=== PATIENT | male | born 1970 | race Two or more races ===

== ENCOUNTER 2020-09-09 13:53 | Inpatient (IN) | payer MEDICAID ==
[~2020-09-09] VITALS: Ht 170.2 cm; Wt 69.6 kg
[2020-09-09 14:10] VITALS: BP 133/80
--- NOTE | 2020-09-09 14:10 | NUR ---
MS FLIGHT TEST SUPERVISOR NOTE ADMITTED PATIENT, DIRECT ADMIT FROM [place]. REPORT GIVEN BY ANILA HUMMEL. PATIENT ALERT AND ORIENTED X 4. DENIED PAIN AT THIS TIME. NO ACUTE DISTRESS OR SHORTNESS OF BREATH NOTED. ORIENTED PATIENT TO THE ROOM, SHOWED HOW TO USE CALL LIGHT AND PLACED WITHIN REACH. SAFETY MEASURE IN PLACE, BED LOCKED IN LOWEST POSITION. NEEDS ATTENDED. IV ACCESS IN RIGHT ANTECUBITAL #20 G CLEAN, DRY, AND INTACT. PATIENT HAS $1075 HERNAN[place], REFUSED TO PLACE MONEY IN SAFE FOR SAFEKEEPING, EXPLAINED RISKS AND BENEFITS AND THAT HOSPITAL IS NOT RESPONSIBLE FOR LOSS, PATIENT VERBALIZED UNDERSTANDING AND STATED DAUGHTER WILL PICK IT UP. WILL CONTINUE TO MONITOR
[2020-09-09] MEDS ORDERED: GLIP10TA3 PO (14:59)
[2020-09-09 16:00] VITALS: BP 133/80
[2020-09-09] MEDS ORDERED: MAG HYDROX/AL HYDROX/SIMETH 30 ML UDC PO PRN (16:00)
[2020-09-09] MEDS ORDERED: ZOLPIDEM TARTRATE 5 MG TABLET PO PRN (16:00)
[2020-09-09] MEDS ORDERED: ONDANSETRON HCL/PF 4 MG/2 ML VIAL IVP PRN (16:00)
[2020-09-09] MEDS ORDERED: HYDROCODONE/APAP 5/325MG TABLET PO PRN (16:00)
[2020-09-09] MEDS ORDERED: MAGNESIUM HYDROXIDE 30 ML UDC PO PRN (16:00)
[2020-09-09] MEDS ORDERED: DEXTROSE 50%-WATER 50 ML DISP.SYRIN IV PRN (16:00)
[2020-09-09] MEDS ORDERED: Z GUARD REMEDY 2 OZ OINT TP PRN (16:00)
[2020-09-09] MEDS ORDERED: MORPHINE SULFATE INJ 2 MG/ML DISP.SYRIN IV PRN (16:00)
[2020-09-09] MEDS: PANTOPRAZOLE 40 MG VIAL IV SCH (16:28)
[2020-09-09] MEDS: IV NS 0.9% 1,000 ML IV PRN (16:28)
--- NOTE | 2020-09-09 16:30 | NUR ---
MS RN NOTE PATIENT SEEN AND EVALUATED BY DR. MARIUM MCDOWELL. MENTIONED VTE SCORE >5, SAID HE WILL PLACE ORDERS.
--- NOTE | 2020-09-09 17:00 | NUR ---
MS RN NOTE PATIENT SEEN AND EVALUATED BY DR. HOFFMAN, PER MD THEY WILL DECIDE TOMORROW REGARDING PLAN FOR SURGERY AND WILL LET US KNOW
[2020-09-09] MEDS: BLOOD SUGAR DIAGNOSTIC 1 EACH STRIP IN SCH ×2 (17:30→21:14)
--- NOTE | 2020-09-09 17:45 | NUR ---
MS RN NOTE PATIENT SEEN AND EVALUATED BY DR. MCCAULEY, PER MD PATIENT CLEARED FOR SURGERY
[2020-09-09] MEDS: INSULIN REGULAR, HUMAN 100 UNIT/ML 3 ML VIAL SQ PRN (18:54)
--- NOTE | 2020-09-09 19:00 | NUR ---
MS CLOSING NOTE PATIENT ALERT AND ORIENTED X 4. DENIED PAIN AT THIS TIME. NO ACUTE DISTRESS OR SHORTNESS OF BREATH NOTED. SAFETY MEASURE IN PLACE, BED LOCKED IN LOWEST POSITION, CALL LIGHT PLACED WITHIN REACH. . NEEDS ATTENDED TO AND ANTICIPATED. IV ACCESS IN RIGHT ANTECUBITAL #20 G CLEAN, DRY, AND INTACT, RUNNING NORMAL SALINE AT 75 MLS/HR. WILL ENDORSE TO RESIDENTIAL SALES CONSULTANT NURSE FOR CONTINUITY OF CARE
[2020-09-09 20:00] VITALS: BP 135/68
--- NOTE | 2020-09-09 20:19 | NUR ---
MS/TELE/RN DURING INITIAL SHIFT ROUNDING, FOUND PATIENT LYING IN BED AWAKE, ALERT, ORIENTED, COMFORTABLE, NO C/O PAIN, NO DISTRESS NOTED, PLAN OF CARE DISCUSSED RE: NPO AFTER MIDNIGHT FOR POSSIBLE PROCEDURE/SURGERY IN THE MORNING, VERBALIZED UNDERSTANDING AND AGREEMENT TO THE PLAN, WILL MONITOR.
[2020-09-09] MEDS: ENOXAPARIN SODIUM 40 MG/0.4 ML DISP.SYRIN SQ SCH (21:00)
--- NOTE | 2020-09-09 21:00 | NUR ---
MS/TELE/RN BLOOD SUGAR 268, DID NOT GIVE INSULIN PATIENT WILL BE NPO POST MIDNIGHT. WILL MONITOR.
--- NOTE | 2020-09-09 21:35 | NUR ---
MS/TELE/RN PER DR. OBREGON, HOLD LOVENOX DOSE TONIGHT FOR POSSIBLE SURGERY IN A.M.
[2020-09-10 00:09] LABS: BASOPHILS % (AUTO) 0.2 % (0.0-2.0); EOSINOPHILS % (AUTO) 0.6 % (0.0-6.0); HEMATOCRIT 33 % (39-51); HEMOGLOBIN 11.1 g/dL (13.5-17.5); LYMPHOCYTES # (AUTO) 1.3 /CMM (0.8-4.8); LYMPHOCYTES % (AUTO) 14.1 % (20.0-44.0); MEAN CORPUSCULAR HGB CONC 34 g/dl (31.0-36.0); MEAN CORPUSCULAR VOLUME 87 fL (80-96); MONOCYTES # (AUTO) 0.8 /CMM (0.1-1.30); MONOCYTES % (AUTO) 8.4 % (2.0-12.0); NEUTROPHILS # (AUTO) 6.9 /CMM (1.8-8.9); NEUTROPHILS % (AUTO) 76.7 % (43.0-81.0); PLATELET COUNT (AUTO) 220 /CMM (150-450); RED BLOOD CELL COUNT(AUTO) 3.73 MIL/uL (4.5-6.0)
[2020-09-10 00:20] LABS: CALCIUM, SERUM 8.1 mg/dL (8.5-10.1); CREATININE 1.6 mg/dL (0.6-1.3); POTASSIUM 4.2 mmol/L (3.5-5.1)
[2020-09-10] MEDS: IV NS 0.9% 1,000 ML IV PRN (05:30)
--- NOTE | 2020-09-10 06:01 | NUR ---
MS/TELE/RN PATIENT IS AWAKE, COMFORTABLE, NO C/O PAIN, NO DISTRESS NOTED, NPO POST MIDNIGHT STATUS, GOOD SLEEP NOTED DURING THE SHIFT, ALL NEEDS ATTENDED AT THIS TIME, WILL CONTINUE TO MONITOR.
--- NOTE | 2020-09-10 06:32 | NUR ---
MS/TELE/RN BLOOD SUGAR 234, DID NOT GIVE INSULIN PATIENT IS NPO FOR SURGERY TODAY.
[2020-09-10 06:39] LABS: BASOPHILS % (AUTO) 0.2 % (0.0-2.0); EOSINOPHILS % (AUTO) 0.2 % (0.0-6.0); HEMATOCRIT 34 % (39-51); HEMOGLOBIN 11.3 g/dL (13.5-17.5); LYMPHOCYTES # (AUTO) 1.1 /CMM (0.8-4.8); LYMPHOCYTES % (AUTO) 11.1 % (20.0-44.0); MEAN CORPUSCULAR HGB CONC 34 g/dl (31.0-36.0); MEAN CORPUSCULAR VOLUME 88 fL (80-96); MONOCYTES # (AUTO) 0.7 /CMM (0.1-1.30); MONOCYTES % (AUTO) 7.1 % (2.0-12.0); NEUTROPHILS # (AUTO) 8.2 /CMM (1.8-8.9); NEUTROPHILS % (AUTO) 81.4 % (43.0-81.0); PLATELET COUNT (AUTO) 215 /CMM (150-450); RED BLOOD CELL COUNT(AUTO) 3.83 MIL/uL (4.5-6.0); WHITE BLOOD COUNT (AUTO) 10.1 K/uL (4.3-11.0)
[2020-09-10 07:00] LABS: CALCIUM, SERUM 8.4 mg/dL (8.5-10.1); CREATININE 1.5 mg/dL (0.6-1.3); MAGNESIUM 1.7 mg/dL (1.8-2.4); PHOSPHORUS 2.2 mg/dL (2.5-4.9); POTASSIUM 3.9 mmol/L (3.5-5.1)
--- NOTE | 2020-09-10 07:38 | NUR ---
MS/RN OPENING NOTES RECEIVED PATIENT IS ON BED AWAKE ALERT AND ORIENTED X4. PATIENT IS ON ROOM AIR SATURATION 92%. PATIENT IN NO APPARENT RESPIRATORY DISTRESS NOTED. NO COMPLAINED OF PAIN NOTED AT THIS TIME. WILL CONTINUE TO MONITOR.
[2020-09-10] MEDS: BLOOD SUGAR DIAGNOSTIC 1 EACH STRIP IN SCH ×4 (07:52→22:22)
[2020-09-10 08:00] VITALS: BP 132/85
[2020-09-10] MEDS ORDERED: VANCOMYCIN 1 GM VIAL ONE (08:40)
[2020-09-10] MEDS ORDERED: BUPIVACAINE 0.25% 75 MG/30 ML VIAL ONE (08:40)
[2020-09-10] MEDS ORDERED: ANESTHESIA TRAY IN PYXIS 1 EA TRAY MC ONE (08:40)
[2020-09-10] MEDS ORDERED: BUPIVACAINE 0.5 % PF 150 MG/30 ML VIAL ONE (08:40)
--- NOTE | 2020-09-10 08:46 | NUR ---
MS/RN NOTES PATIENT IS ALERT AND ORIENTED X4. PATIENT IN NO APPARENT RESPIRATORY DISTRESS NOTED. PATIENT PICK BY OR NURSE FOR SURGERY.
[2020-09-10] MEDS ORDERED: MIDAZOLAM HCL 2 MG/2ML VIAL ONE (08:51)
[2020-09-10] MEDS ORDERED: FENTANYL PF 100MCG/2ML AMPUL ONE (08:51)
[2020-09-10] MEDS ORDERED: SUCCINYLCHOLINE CHLORIDE 20 MG/ML VIAL ONE (08:52)
[2020-09-10] MEDS ORDERED: IV NS 0.9% 1,000 ML IV PRN (08:56)
[2020-09-10] MEDS: PANTOPRAZOLE 40 MG VIAL IV SCH (09:00)
[2020-09-10] MEDS: NEUTRA PHOS 1 POWD.PACKET PO SCH ×2 (09:00→16:51)
[2020-09-10 10:02] LABS: THYROID STIMULATING HORMONE 1.405 uIU/mL (0.358-3.74)
--- NOTE | 2020-09-10 11:29 | NUR ---
MS/RN NOTES PATIENT CAME BACK FROM SURGERY.PATIENT IN ROOM AIR SATURATION 93%. PATIENT IN NO APPARENT RESPIRATORY DISTRESS NOTED. NO COMPLAINED OF PAIN NOTED AT THIS TIME. RECEIVED REPORT FROM PAT SECRETARY OF POLICE REGULAR DIET, OUT OF BED IN AM AND WEIGHT BEARING ON RIGHT LEG TOLERATED AND DISLOCATION PRECAUTION. NOTED AND CARRIED OUT. BP 115/71 P 93 TEMP 98.5. WILL CONTINUE TO MONITOR.
[2020-09-10] MEDS ORDERED: HYDROCODONE/APAP 10/325MG TABLET PO PRN (12:00)
[2020-09-10] MEDS ORDERED: MORPHINE SULFATE INJ 2 MG/ML DISP.SYRIN IV PRN (12:00)
[2020-09-10] MEDS: IV D5/0.45 NACL W/20 MEQ KCL 1L IV SCH ×2 (12:09→13:04)
[2020-09-10] MEDS: INSULIN REGULAR, HUMAN 100 UNIT/ML 3 ML VIAL SQ PRN ×3 (12:23→21:56)
[2020-09-10] MEDS ORDERED: Magnesium 1GM/D5W 100ML PREMIX 200 ML IV ONE (12:26)
[2020-09-10] MEDS: Magnesium 1GM/D5W 100ML PREMIX 100 ML IV SCH ×2 (12:26→14:04)
[2020-09-10 16:00] VITALS: BP 107/60
[2020-09-10] MEDS: ANCEF 1 GM/50 ML D5W IV SCH (16:50)
[2020-09-10] MEDS: glipiZIDE 10 MG TABLET PO SCH (16:51)
--- NOTE | 2020-09-10 18:45 | NUR ---
MS/RN CLOSING NOTES PATIENT IS ON BED ALERT AND ORIENTED X4. PATIENT IN ROOM AIR SATURATION 92%. PATIENT IN NO APPARENT RESPIRATORY DISTRESS NOTED. NO COMPLAINED OF PAIN AT THIS TIME. IV ACCESS AT RIGHT WRIST # 22 G PATENT AND INTACT. SEEN AND EXAMINED BY MD WITH ORDERS MADE AND CARRIED OUT. ALL DUE MEDICATIONS WAS GIVEN. SAFETY PRECAUTIONS WAS IN PLACED. BED IN LOWEST POSITION AND LOCKED. SIDERAILS UP X2. CALL LIGHT WITHIN REACH. WILL ENDORSED TO EXPERIMENTAL WORKER FOR DELMAR.
--- NOTE | 2020-09-10 19:40 | NUR ---
MS/TELE/RN RECEIVED PATIENT LYING IN BED APPEAR SLEEPING, APPEAR COMFORTABLE, NO SIGNS OF DISTRESS NOTED, CALL LIGHT IN REACH, FALL PRECAUTION PER PROTOCOL, WILL MONITOR.
[2020-09-10 20:00] VITALS: BP 102/63
[2020-09-10] MEDS: ACETAMINOPHEN 325 MG TABLET PO PRN (21:44)
[2020-09-10] MEDS: ENOXAPARIN SODIUM 40 MG/0.4 ML DISP.SYRIN SQ SCH (21:47)
[2020-09-11] MEDS: ANCEF 1 GM/50 ML D5W IV SCH ×2 (00:05→09:05)
--- NOTE | 2020-09-11 01:01 | NUR ---
MS/TELE/RN AT 2143, DIRECTOR SUPPLIER QUALITY REPORTED A TEMP OF 102.8, PATIENT IS S/P ORIF, TYLENOL WAS GIVEN, COOLING MEASURES STARTED. WILL MONITOR TEMP.
--- NOTE | 2020-09-11 01:02 | NUR ---
MS/TEL/RN TEMP IS 102.6 AT THIS TIME, WILL CONTINUE COOLING MEASURES.
[2020-09-11] MEDS: IV D5/0.45 NACL W/20 MEQ KCL 1L IV SCH (04:47)
--- NOTE | 2020-09-11 05:29 | NUR ---
MS/TELE/RN TEMP= 102.7 STILL, NOTIFIED BY SECURED TEXT MESSAGE TO DR. OBREGON AT 0444. URINE OUTPUT 250, DID BLADDER SCAN, 683 MLS NOTED. MADE A CALL TO [employer], LEFT MESSAGE.
[2020-09-11] MEDS: ACETAMINOPHEN 325 MG TABLET PO PRN ×3 (06:23→21:27)
[2020-09-11 06:39] LABS: BASOPHILS % (AUTO) 0.2 % (0.0-2.0); HEMATOCRIT 26 % (39-51); HEMOGLOBIN 8.8 g/dL (13.5-17.5); LYMPHOCYTES # (AUTO) 1.4 /CMM (0.8-4.8); LYMPHOCYTES % (AUTO) 12.2 % (20.0-44.0); MEAN CORPUSCULAR HGB CONC 34 g/dl (31.0-36.0); MEAN CORPUSCULAR VOLUME 89 fL (80-96); MONOCYTES # (AUTO) 1.3 /CMM (0.1-1.30); MONOCYTES % (AUTO) 11.4 % (2.0-12.0); NEUTROPHILS # (AUTO) 8.6 /CMM (1.8-8.9); NEUTROPHILS % (AUTO) 76.2 % (43.0-81.0); PLATELET COUNT (AUTO) 175 /CMM (150-450); RED BLOOD CELL COUNT(AUTO) 2.97 MIL/uL (4.5-6.0); WHITE BLOOD COUNT (AUTO) 11.2 K/uL (4.3-11.0)
--- NOTE | 2020-09-11 06:44 | NUR ---
MS/TELE/RN RECEIVED ORDERS FROM DR. OBREGON OF BLOOD CULTURES X 2, UA AND CULTURE, CXR, CARRIED OUT. STRAIGHT CATH DONE WITH 900 MLS CLEAR, GLENN COLORED URINE OUTPUT. URINE SPECIMEN OBTAINED AND SENT TO LAB. ALL NEEDS ATTENDED AT THIS TIME. WILL CONTINUE TO MONITOR.
[2020-09-11 07:03] LABS: ALBUMIN 2.5 g/dL (3.4-5.0); BILIRUBIN,TOTAL 0.4 mg/dL (0.2-1.0); CALCIUM, SERUM 7.6 mg/dL (8.5-10.1); CREATININE 1.9 mg/dL (0.6-1.3); PHOSPHORUS 2.9 mg/dL (2.5-4.9); POTASSIUM 4.3 mmol/L (3.5-5.1); TOTAL PROTEIN, SERUM 6.1 g/dL (6.4-8.2)
[2020-09-11 07:17] LABS: BILIRUBIN,URINE NEGATIVE (NEGATIVE); COLOR,URINE YELLOW (YELLOW); LEUKOCYTE ESTERASE ,URINE NEGATIVE (NEGATIVE); NITRITE, URINE NEGATIVE (NEGATIVE); PROTEIN,URINE TRACE mg/dl (NEGATIVE); UGLUCOSE 250 MG/DL mg/dL (NEGATIVE); UROBILINOGEN,URINE 0.2 EU/dL (0.2)
[2020-09-11] MEDS: INSULIN REGULAR, HUMAN 100 UNIT/ML 3 ML VIAL SQ PRN ×4 (07:18→22:16)
[2020-09-11] MEDS: BLOOD SUGAR DIAGNOSTIC 1 EACH STRIP IN SCH ×4 (07:19→22:14)
[2020-09-11 07:27] LABS: COARSE GRANULAR CASTS,URINE Few /LPF (None Seen); RBC,URINE 0-2 /HPF (0-2); SQUAMOUS EPITHELIAL CELL,UR Rare /HPF (None Seen); URINE AMORPHOUS URATE Few /HPF (None Seen); WBC,URINE 0-2 /HPF (0-3)
[2020-09-11 07:28] LABS: BACTERIA,URINE Few /HPF (None Seen)
--- NOTE | 2020-09-11 07:50 | NUR ---
MS/RN OPENING NOTES RECEIVED PATIENT IS ON BED AWAKE ALERT AND ORIENTED X4. PATIENT IS ON ROOM AIR SATURATION 93%. PATIENT IN NO APPARENT RESPIRATORY DISTRESS NOTED. NO COMPLAINED OF PAIN NOTED AT THIS TIME. TEMP 102.3 COOLING MEASURE WAS APPLIED AND ONCOLOGY PHYSICIAN ASSISTANT RN WAS GIVEN TYLENOL AT AROUND 6AM. WILL CONTINUE TO MONITOR.
[2020-09-11 08:00] VITALS: BP 117/72
[2020-09-11] MEDS: PANTOPRAZOLE 40 MG VIAL IV SCH (09:05)
[2020-09-11] MEDS: glipiZIDE 10 MG TABLET PO SCH ×2 (09:05→17:21)
[2020-09-11] MEDS: PANTOPRAZOLE 40 MG TABLET.DR PO SCH (09:30)
--- NOTE | 2020-09-11 09:53 | NUR ---
MS/RN NOTES PANTOPRAZOLE 40MG IV WAS GIVEN AT 0905.
--- NOTE | 2020-09-11 10:59 | NUR ---
MS/RN NOTES RECHECKED TEMP 101.5 COOLING MEASURE AND TYLENOL 325MG 2 TABS PO WAS GIVEN. WILL CONTINUE TO MONITOR.
[2020-09-11] MEDS: SOD FERRIC GLUC 125 MG in IV NS 0.9% 100 ML IV SCH (14:47)
[2020-09-11] MEDS: IV NS 0.9% 1,000 ML IV PRN (14:49)
[2020-09-11 15:52] VITALS: BP 110/68
--- NOTE | 2020-09-11 18:23 | NUR ---
MS/RN NOTES KIDNEY ULTRASOUND RESULT WAS RELAY TO DR. RUIZ NO NEW ORDER AT THIS TIME.
--- NOTE | 2020-09-11 18:46 | NUR ---
MS/RN CLOSING NOTES PATIENT IS ON BED ALERT AND ORIENTED X4. PATIENT IN ROOM AIR SATURATION 96%. PATIENT IN NO APPARENT RESPIRATORY DISTRESS NOTED. NO COMPLAINED OF PAIN AT THIS TIME. IV ACCESS AT RIGHT WRIST # 22 G WITH IV FLUID OF NS 1L AT 75 ML/HR ON AND INFUSING WELL. SEEN AND EXAMINED BY MD WITH ORDERS MADE AND CARRIED OUT. ALL DUE MEDICATIONS WAS GIVEN. SAFETY PRECAUTIONS WAS IN PLACED. BED IN LOWEST POSITION AND LOCKED. SIDERAILS UP X2. CALL LIGHT WITHIN REACH. PATIENT IS AFEBRILE LATEST TEMP 99.5. WILL ENDORSED TO TELECOM BILLING ANALYST FOR DELMAR.
--- NOTE | 2020-09-11 19:30 | NUR ---
MS/RN OPENING NOTES RECEIVED PATIENT IN BED RESTING. PATIENT IS ALERT AND ORIENTED X 4. PATIENT BREATHING IS EVEN AND NONLABORED. PATIENT SHOWS NO SIGNS OF SOB OR RESPIRATORY DISTRESS. PATIENT STATES NO PAIN AT THIS TIME. PATIENT IV ACCESS INTACT FLUSHING WELL. SAFETY MEASURES ARE IN PLACE, BED IS LOCKED AND PLACED IN THE LOW POSITION, SIDE RAILS UP X 2, CALL LIGHT IS WITHIN REACH. WILL CONTINUE WITH PATIENT PLAN OF CARE.
[2020-09-11 20:00] VITALS: BP 113/70
[2020-09-11] MEDS: ENOXAPARIN SODIUM 40 MG/0.4 ML DISP.SYRIN SQ SCH (21:06)
[2020-09-12 06:26] LABS: BASOPHILS % (AUTO) 0.1 % (0.0-2.0); EOSINOPHILS % (AUTO) 0.1 % (0.0-6.0); HEMATOCRIT 24 % (39-51); HEMOGLOBIN 8.1 g/dL (13.5-17.5); LYMPHOCYTES # (AUTO) 1.3 /CMM (0.8-4.8); LYMPHOCYTES % (AUTO) 10.8 % (20.0-44.0); MEAN CORPUSCULAR HGB CONC 34 g/dl (31.0-36.0); MEAN CORPUSCULAR VOLUME 87 fL (80-96); MONOCYTES # (AUTO) 1.4 /CMM (0.1-1.30); MONOCYTES % (AUTO) 11.8 % (2.0-12.0); NEUTROPHILS # (AUTO) 9.1 /CMM (1.8-8.9); NEUTROPHILS % (AUTO) 77.2 % (43.0-81.0); PLATELET COUNT (AUTO) 173 /CMM (150-450); RED BLOOD CELL COUNT(AUTO) 2.75 MIL/uL (4.5-6.0); WHITE BLOOD COUNT (AUTO) 11.7 K/uL (4.3-11.0)
[2020-09-12] MEDS: BLOOD SUGAR DIAGNOSTIC 1 EACH STRIP IN SCH ×4 (06:36→23:30)
--- NOTE | 2020-09-12 06:40 | NUR ---
MS/RN CLOSING NOTES PATIENT IN BED RESTING. PATIENT IS ALERT AND ORIENTED X 4. PATIENT BREATHING IS EVEN AND NONLABORED. PATIENT SHOWS NO SIGNS OF SOB OR RESPIRATORY DISTRESS. PATIENT STATES NO PAIN AT THIS TIME. PATIENT USED RESTROOM DURING SHIFT AMBULATE WITH ASSIST. PATIENT IV ACCESS INTACT FLUSHING WELL. ALL NEEDS MET DURING SHIFT. SAFETY MEASURES ARE IN PLACE, BED IS LOCKED AND PLACED IN THE LOW POSITION, SIDE RAILS UP X 2, CALL LIGHT IS WITHIN REACH. WILL ENDORSE CARE TO DAY SHIFT NURSE.
--- NOTE | 2020-09-12 07:40 | NUR ---
MS RN OPENING NOTES RESIDENT ALERT AND ORIENTED X4 ON BED WITH NO SIGNS OF RESPIRATORY DISTRESS. PATIENT AMBULATES USING WALKER WITH ASSIST. ON MODERATE TO HIGH BACK REST. COMFORT MEASURES PROVIDED. PT WITH IV PERIPHERAL ACCESS ON RIGHT AC G20. WITH DRESSING ON THE RIGHT HIP, DRESSING DRY AND INTACT. PATIENT WITH DRESSING ON ENCOURAGED TO DO DEEP BREATHING EXERCISES. CALL LIGHT WITHIN REACH AT ALL TIMES. PROVIDED WITH CALM AND QUIET ENVIRONMENT. WILL MONITOR CLOSELY
[2020-09-12 07:48] LABS: ALBUMIN 2.3 g/dL (3.4-5.0); BILIRUBIN,TOTAL 0.5 mg/dL (0.2-1.0); CALCIUM, SERUM 7.9 mg/dL (8.5-10.1); CREATININE 1.9 mg/dL (0.6-1.3); MAGNESIUM 2.1 mg/dL (1.8-2.4); PHOSPHORUS 2.8 mg/dL (2.5-4.9); TOTAL PROTEIN, SERUM 6.1 g/dL (6.4-8.2)
--- NOTE | 2020-09-12 07:59 | NUR ---
MS RN OPENING NOTE PATIENT IS IN BED RESTING, PATIENT IS IN NO ACUTE DISTRESS. PATIENT IS ON ROOM AIR, TOLERATING WELL, NO SOB NOTED. PATIENT IS AMBULATORY WITH WALKER. SAFETY PRECAUTIONS ARE ON, BED IS LOCKED IN THE LOWEST POSITION, SIDE RAILS ARE UP, CALL LIGHT WITHIN REACH. WILL CONTINUE TO MONITOR CLOSELY.
[2020-09-12 08:00] VITALS: BP 134/77
[2020-09-12] MEDS: glipiZIDE 10 MG TABLET PO SCH ×2 (08:54→17:42)
[2020-09-12] MEDS: PANTOPRAZOLE 40 MG TABLET.DR PO SCH (08:54)
[2020-09-12] MEDS: SOD FERRIC GLUC 125 MG in IV NS 0.9% 100 ML IV SCH (15:02)
[2020-09-12 16:00] VITALS: BP 133/80
--- NOTE | 2020-09-12 19:10 | NUR ---
MS RN CLOSING NOTES PATIENT IS ON BED ALERT AND ORIENTED X 4. PATIENT ON ROOM AIR SATURATION 96%, WITH NO SIGNS OF DISTRESS. NO COMPLAINED OF PAIN AT THIS TIME. WITH IV ACCESS ON RIGHT WRIST GUAGE # 22 WITH IV FLUID OF NS 1L AT 75 ML/HR ON AND INFUSING WELL. NEEDS ATTENDED. PATIENT WAS AFEBRILE THE ENTIRE SHIFT WITH LATEST TEMPERATURE OF 98.2. BED PLACED IN THE LOWEST POSITION AND LOCKED. ENCOURAGED TO DO DEEP BREATHING EXERCISES. CALL LIGHT WITHIN REACH AT ALL TIMES. ENDORSED ACCORDINGLY.
--- NOTE | 2020-09-12 19:30 | NUR ---
MS RN OPENING NOTES PATIENT IN BED ON HIS PHONE. A/OX4.NO S/S OF RESPIRATORY DISTRESS. NO C/O OF PAIN AT THE MOMENT. SAFETY IN PLACE: BED IN LOWEST, LOCKED POSITION; CALL LIGHT WITHIN REACH. ABDUCTION PILLOW NOTED. WILL CONTINUE TO MONITOR.
[2020-09-12 20:00] VITALS: BP_SYST 132; BP_SYST 133; BP_DIAS 86
[2020-09-12] MEDS: TAMSULOSIN 0.4 MG CAP.SR.24H PO SCH (21:38)
[2020-09-12] MEDS: ENOXAPARIN SODIUM 40 MG/0.4 ML DISP.SYRIN SQ SCH (21:43)
[2020-09-12] MEDS: INSULIN REGULAR, HUMAN 100 UNIT/ML 3 ML VIAL SQ PRN (23:43)
--- NOTE | 2020-09-12 23:47 | NUR ---
MS RN NOTES PATIENT BS 227. GIVEN 4 UNITS OF INSULIN PER SLIDING SCALE. SNACK PROVIDED AT BEDSIDE.
[2020-09-13] MEDS: ACETAMINOPHEN 325 MG TABLET PO PRN (00:13)
--- NOTE | 2020-09-13 00:19 | NUR ---
MS RN NOTES PATIENT HAS A TEMP. OF 100.1. EVEN AFTER ICE PACK AND INTERVENTION, GIVEN TYLENOL PRN. WILL CONTINUE TO MONITOR.
--- NOTE | 2020-09-13 02:32 | NUR ---
MS RN NOTES TEMPERATURE WENT DOWN TO 99.7. ICE PACKS IN PLACE WELL.
[2020-09-13] MEDS: IV NS 0.9% 1,000 ML IV PRN (02:44)
[2020-09-13] MEDS: BLOOD SUGAR DIAGNOSTIC 1 EACH STRIP IN SCH ×4 (06:06→22:57)
[2020-09-13] MEDS: INSULIN REGULAR, HUMAN 100 UNIT/ML 3 ML VIAL SQ PRN ×2 (06:31→18:23)
--- NOTE | 2020-09-13 06:35 | NUR ---
MS RN NOTES PATIENT BS 154. GIVEN 2 UNITS OF INSULIN PER SLIDING SCALE.
--- NOTE | 2020-09-13 06:43 | NUR ---
MS RN CLOSING NOTES PATIENT IN BED. A/OX4. ABLE TO MAKE NEEDS KNOWN. NO S/S OF DISTRESS. NO C/O PAIN GRISELDA. ALL NEEDS ATTENDED. ALL SCHEDULED MEDS ADMINISTERED. EVEN PRN MEDS. SAFETY KEPT IN PLACE THE WHOLE SHIFT: BED IN LOWEST, LOCKED POSITION; CALL LIGHT WITHIN REACH. WILL ENDORSE CARE TO MORNING SHIFT NURSE, ESPECIALLY THE MONITORING OF TEMPERATURE.
[2020-09-13 06:59] LABS: BASOPHILS % (AUTO) 0.4 % (0.0-2.0); EOSINOPHILS % (AUTO) 1.3 % (0.0-6.0); HEMATOCRIT 26 % (39-51); HEMOGLOBIN 8.8 g/dL (13.5-17.5); LYMPHOCYTES # (AUTO) 1.1 /CMM (0.8-4.8); LYMPHOCYTES % (AUTO) 10.5 % (20.0-44.0); MEAN CORPUSCULAR HGB CONC 34 g/dl (31.0-36.0); MEAN CORPUSCULAR VOLUME 88 fL (80-96); MONOCYTES # (AUTO) 1.1 /CMM (0.1-1.30); MONOCYTES % (AUTO) 10.9 % (2.0-12.0); NEUTROPHILS # (AUTO) 7.7 /CMM (1.8-8.9); NEUTROPHILS % (AUTO) 76.9 % (43.0-81.0); PLATELET COUNT (AUTO) 229 /CMM (150-450); RED BLOOD CELL COUNT(AUTO) 2.96 MIL/uL (4.5-6.0)
[2020-09-13 07:16] LABS: CALCIUM, SERUM 7.9 mg/dL (8.5-10.1); CREATININE 1.5 mg/dL (0.6-1.3); POTASSIUM 4.1 mmol/L (3.5-5.1)
--- NOTE | 2020-09-13 08:00 | NUR ---
MS RN OPENING NOTES Patient is A&Ox4. VS WNL. Afebrile. Denies pain to R hip surgical site. Can walk to bathroom with walker and 1 person stand by assist. Denies any pain at this time.
[2020-09-13 08:06] LABS: *SPE A/G RATIO 0.9 (0.7-1.7); *SPE ALBUMIN 2.7 g/dL (2.9-4.4); *SPE ALPHA-1-GLOBULIN 0.4 g/dL (0.0-0.4); *SPE ALPHA-2-GLOBULIN 0.8 g/dL (0.4-1.0); *SPE BETA GLOBULIN 0.9 g/dL (0.7-1.3); *SPE GLOBULIN, TOTAL 2.9 g/dL (2.2-3.9); *SPE M-SPIKE Not Observed g/dL (Not Observed); *SPEGAMMA GLOBULIN 0.9 g/dL (0.4-1.8); PTH, INTACT 47 pg/mL (15-65)
[2020-09-13 08:42] VITALS: BP 141/78
[2020-09-13] MEDS: PANTOPRAZOLE 40 MG TABLET.DR PO SCH (08:51)
[2020-09-13] MEDS: glipiZIDE 10 MG TABLET PO SCH ×2 (08:51→18:00)
[2020-09-13] MEDS: SOD FERRIC GLUC 125 MG in IV NS 0.9% 100 ML IV SCH (14:50)
[2020-09-13 16:21] VITALS: BP 142/86
--- NOTE | 2020-09-13 18:54 | NUR ---
RN MS NOTES PT IN BED, AWAKE, ALERT AND ORIENTED, DENIES PAIN, NOT IN DISTRESS, CALL LIGHT WITHIN REACH, IV FLUIDS INFUSING WELL, ABLE TO AMBULATE TO THE BATHROOM WITH A WALKER, NO URINATION PROBLEM NOTED, NO BLADDER DISCOMFORT NOTED, PM MEDS GIVEN, ALL NEEDS ATTENDED.
--- NOTE | 2020-09-13 20:37 | NUR ---
MS RN NOTES PATIENT IN BED. A/OX4. ASKED TO GO TO THE RESTROOM. TAKEN OUT OF THE IV LINE. WENT TO THE RESTROOM VIA WALKER. NO S/S OF DISTRESS VIA ROOM AIR, TOLERATING. NO C/O PAIN. SAFETY IN PLACE: BED IN LOWEST, LOCKED POSITION, CALL LIGHT WITHIN REACH. WILL CONTINUE TO MONITOR.
[2020-09-13 20:51] VITALS: BP 141/72
[2020-09-13] MEDS: TAMSULOSIN 0.4 MG CAP.SR.24H PO SCH (22:44)
[2020-09-13] MEDS: ENOXAPARIN SODIUM 40 MG/0.4 ML DISP.SYRIN SQ SCH (22:49)
[2020-09-14 06:40] LABS: BASOPHILS % (AUTO) 0.1 % (0.0-2.0); EOSINOPHILS % (AUTO) 2.6 % (0.0-6.0); HEMATOCRIT 25 % (39-51); HEMOGLOBIN 8.6 g/dL (13.5-17.5); LYMPHOCYTES # (AUTO) 1.2 /CMM (0.8-4.8); LYMPHOCYTES % (AUTO) 13.8 % (20.0-44.0); MEAN CORPUSCULAR HGB CONC 35 g/dl (31.0-36.0); MEAN CORPUSCULAR VOLUME 88 fL (80-96); MONOCYTES # (AUTO) 1.2 /CMM (0.1-1.30); MONOCYTES % (AUTO) 13.5 % (2.0-12.0); NEUTROPHILS # (AUTO) 6.3 /CMM (1.8-8.9); PLATELET COUNT (AUTO) 261 /CMM (150-450); RED BLOOD CELL COUNT(AUTO) 2.85 MIL/uL (4.5-6.0)
[2020-09-14 07:06] LABS: ALBUMIN 2.2 g/dL (3.4-5.0); BILIRUBIN,TOTAL 0.4 mg/dL (0.2-1.0); CALCIUM, SERUM 8.4 mg/dL (8.5-10.1); CREATININE 1.5 mg/dL (0.6-1.3); MAGNESIUM 1.9 mg/dL (1.8-2.4); PHOSPHORUS 2.3 mg/dL (2.5-4.9); POTASSIUM 3.9 mmol/L (3.5-5.1); TOTAL PROTEIN, SERUM 6.7 g/dL (6.4-8.2)
--- NOTE | 2020-09-14 07:30 | NUR ---
MS RN CLOSING NOTES PATIENT A/OX4. NO S/S OF DISTRESS. NO C/O PAIN GRISELDA. SAFETY KEPT IN PLACE THE WHOLE SHIFT: BED IN LOWEST, LOCKED POSITION; CALL LIGHT WITHIN REACH. WILL ENDORSE CARE TO MORNING SHIFT NURSE.
--- NOTE | 2020-09-14 08:00 | NUR ---
MS RN NOTES Patient is awake,alert, oriented x4. VSS. Seen smiling, verbalizes he is happy his strength is getting better and is able to get up and walk with his walker. Denies pain. Able to verbalize needs.
[2020-09-14] MEDS: glipiZIDE 10 MG TABLET PO SCH ×2 (08:24→17:52)
[2020-09-14] MEDS: PANTOPRAZOLE 40 MG TABLET.DR PO SCH (08:24)
[2020-09-14] MEDS: INSULIN REGULAR, HUMAN 100 UNIT/ML 3 ML VIAL SQ PRN ×3 (08:26→18:15)
[2020-09-14] MEDS: BLOOD SUGAR DIAGNOSTIC 1 EACH STRIP IN SCH ×3 (08:27→18:35)
[2020-09-14 08:49] VITALS: BP 96/62
[2020-09-14] MEDS: ACETAMINOPHEN 325 MG TABLET PO PRN (10:18)
[2020-09-14] MEDS ORDERED: K PHOS NEUTRAL 250 MG TABLET PO ONE (11:00)
[2020-09-14] MEDS: SOD FERRIC GLUC 125 MG in IV NS 0.9% 100 ML IV SCH (14:18)
[2020-09-14 16:17] VITALS: BP 118/76
--- NOTE | 2020-09-14 18:40 | NUR ---
RN CLOSING NOTES Patient A&Ox4. VS WNL. Temp 99.3 at 0800, tylenol given and effective at 1300 Temp 98.4. No hypo or hyperglycemic reactions noted. Able to transfer out of bed and to bathroom by himself steady with use of walker. Tolerating diet well. C/o mild cough but no other ill effects related to dx of PNA. Denies, SOB, sore throat. Able to make needs known.
--- NOTE | 2020-09-14 18:57 | NUR ---
MANAGER STARS NOTES Patient discharged to [facility] for further therapy and rehabilitation. Left with 2 trim sawyer via ambulance at 1857 in stable condition. VS WNL. IV removed prior to discharge. Instructions given to patient of hip replacement aftercare, follow up with PCP, follow up with ortho, return to ER in case of emergency, education on MRSA prevention and smoking cessation provided per protocol. Start on PO Levaquin for dx of PNA. Patient denies any pain or discomfort at this time. Report called in to SNF RN.
[2020-09-14 20:00] VITALS: BP 115/59
== END 2020-09-14 19:00 | DRG 301 ==
LOC: MED 13:53
PROVIDERS: ADMIT Nurse Practitioner Acute Care
PROC: 0SR90JA Replacement of Right Hip Joint with Synthetic Substitute, Uncemented, Open Approach (ICD-10-PCS; principal; 2020-09-10)
DX: S72.011A Unspecified intracapsular fracture of right femur, initial encounter for closed fracture (principal); N17.0 Acute kidney failure with tubular necrosis; E11.3293 Type 2 diabetes mellitus with mild nonproliferative diabetic retinopathy without macular edema, bilateral; W01.0XXA Fall on same level from slipping, tripping and stumbling without subsequent striking against object, initial encounter; Y92.008 Other place in unspecified non-institutional (private) residence as the place of occurrence of the external cause; E11.65 Type 2 diabetes mellitus with hyperglycemia; D63.8 Anemia in other chronic diseases classified elsewhere; E11.22 Type 2 diabetes mellitus with diabetic chronic kidney disease; E78.5 Hyperlipidemia, unspecified; N18.9 Chronic kidney disease, unspecified; E83.42 Hypomagnesemia; E83.39 Other disorders of phosphorus metabolism; D72.829 Elevated white blood cell count, unspecified; N13.9 Obstructive and reflux uropathy, unspecified; J18.9 Pneumonia, unspecified organism; Z79.84 Long term (current) use of oral hypoglycemic drugs
CPT/HCPCS: 36415; 71045-TC; 73502; 76770-TC; 80048-TC; 80053-TC; 80061-TC; 81001; 82550-TC; 82553; 82728-TC; 82962-TC; 83540-TC; 83735-TC; 83970; 84100-TC; 84155; 84165; 84439-TC; 84443-TC; 85025-TC; 85610-TC; 85730-TC; 86850-TC; 87040-TC; 87081-TC; 87086-TC; 88305-TC; 88311-TC; 93307-TC; 97116-TC; 97530-TC; A6209; C1776; C9113; G0378; J0330; J0690; J1650; J1815; J2250; J2270; J2405; J2704; J2765; J2916; J3010; J3370; J3475; J3480; J3490; J7030; J7050; J7060

== ENCOUNTER 2020-12-08 15:35 | Inpatient (IN) | payer MEDICAID ==
[~2020-12-08] VITALS: Ht 170.2 cm; Wt 64.9 kg
[~2020-12-08 15:35] MED LIST: GLIP10TA3 PO
[2020-12-08] MEDS ORDERED: GLUCAGON,HUMAN RECOMBINANT 1 MG/VIAL VIAL IV ONE (17:00)
[2020-12-08] MEDS ORDERED: GLUCAGON,HUMAN RECOMBINANT 1 MG/VIAL VIAL ONE (17:30)
--- NOTE | 2020-12-08 19:09 | NUR ---
COVID SWAB SENT TO LAB
[2020-12-08 19:12] LABS: BASOPHILS % (AUTO) 0.3 % (0.0-2.0); EOSINOPHILS % (AUTO) 1.6 % (0.0-6.0); HEMATOCRIT 34 % (39-51); HEMOGLOBIN 11.1 g/dL (13.5-17.5); LYMPHOCYTES # (AUTO) 2.2 K/uL (0.8-4.8); LYMPHOCYTES % (AUTO) 27.1 % (20.0-44.0); MEAN CORPUSCULAR HGB CONC 33 g/dl (31.0-36.0); MEAN CORPUSCULAR VOLUME 84 fL (80-96); MONOCYTES # (AUTO) 0.7 K/uL (0.1-1.30); MONOCYTES % (AUTO) 8.6 % (2.0-12.0); NEUTROPHILS # (AUTO) 5.2 K/uL (1.8-8.9); NEUTROPHILS % (AUTO) 62.4 % (43.0-81.0); PLATELET COUNT (AUTO) 312 K/uL (150-450); WHITE BLOOD COUNT (AUTO) 8.2 K/uL (4.3-11.0)
[2020-12-08 19:22] LABS: CALCIUM, SERUM 8.6 mg/dL (8.5-10.1); CREATININE 1.6 mg/dL (0.6-1.3); POTASSIUM 4.6 mmol/L (3.5-5.1)
--- NOTE | 2020-12-08 19:31 | NUR ---
PT AAOX4. TOOK OVER PT CARE. UPON READING TRIAGE NOTE AND SPEAKING TO PT, PT IS HERE DUE TO HAVING FOOD STUCK IN HIS THROAT AFTER EATING A HAMBURGER. PT WAS PLACED IN BED 14 ON MONITOR AND PULSE OX. RR EVEN AND UNLABORED. NO ACUTE DISTRESS NOTED. AWAITING ADMISSION BED.
--- NOTE | 2020-12-08 20:22 | NUR ---
PT RESTING AT BEDSIDE. DAUGHTER SPEAKING TO PT.
[2020-12-08] MEDS ORDERED: ACETAMINOPHEN 325 MG TABLET PO PRN (21:00)
[2020-12-08] MEDS ORDERED: MAG HYDROX/AL HYDROX/SIMETH 30 ML UDC PO PRN (21:00)
[2020-12-08] MEDS ORDERED: IV NS 0.9% 1,000 ML BAG IV ONE (21:00)
[2020-12-08] MEDS ORDERED: Z GUARD REMEDY 2 OZ OINT TP PRN (21:00)
[2020-12-08] MEDS ORDERED: ONDANSETRON HCL/PF 4 MG/2 ML VIAL IVP PRN (21:00)
[2020-12-08] MEDS ORDERED: DEXTROSE 50%-WATER 50 ML DISP.SYRIN IV PRN (21:00)
[2020-12-08] MEDS ORDERED: MAGNESIUM HYDROXIDE 30 ML UDC PO PRN (21:00)
--- NOTE | 2020-12-08 22:01 | NUR ---
MS 309-1
--- NOTE | 2020-12-08 22:08 | NUR ---
REPORT GIVEN TO ARI HIGH FOR DELMAR
[2020-12-08 22:45] VITALS: BP 132/88
--- NOTE | 2020-12-08 22:55 | NUR ---
MS RN ADMITTING NOTES RECEIVED PATIENT FROM E.R VIA YANNA SILVA, AL&O X 4, PATIENT IS ACCOMPANIED BY HIS DAUGHTER CANDY, ASSESSMENT INFORMATION TRANSLATED BY DAUGHTER TO PATIENT. PATENT IS LIBYAN SPEAKING. ON ROOM AIR, TOLERATING WELL, NOT IN ANY FORM OF ACUTE DISTRESS NOTED. ABLE TO AMBULATE DURING TRANSFER TO BED. DENIES PAIN AT THIS TIME. IV ACCESS ON LEFT AC, PATENT AND INFUSING WELL. STARTED PATIENT ON D5 1/2 NS 1L X 75CC/HR. NO S/SX OF INFILTRATION NOTED. INSTRUCTED ON NPO, SAFETY PRECAUTIONS OBSERVED: BED ON LOWEST LOCKED POSITION, KEPT CALL LIGHT WITHIN EASY REACH, SIDE RAILS UP X 2. INSTRUCTED TO USE CALL LIGHT WHEN ASSISTANCE IS NEEDED, PATIENT VERBALIZED UNDERSTANDING OF INSTRUCTIONS GIVEN. BELONGINGS REVIEWED WITH PATIENT'S DAUGHTER, SIGNED AND ACCOUNTED FOR. WILL CONTINUE TO MONITOR PATIENT CURRENT STATUS.
[2020-12-08] MEDS: IV D5/0.45 NACL 1,000 ML IV PRN (23:11)
[2020-12-09] VITALS: BP 132/88
[2020-12-09] MEDS: BLOOD SUGAR DIAGNOSTIC 1 EACH STRIP IN SCH ×5 (00:31→23:43)
--- NOTE | 2020-12-09 00:31 | NUR ---
RN NOTES PATIENT BLOOD SUGAR CHECKED, RESULT 116 MG/DL, NO INSULIN COVERAGE.
[2020-12-09] MEDS: INSULIN REGULAR, HUMAN 100 UNIT/ML 3 ML VIAL SQ PRN ×4 (00:32→23:44)
--- NOTE | 2020-12-09 02:00 | NUR ---
RN NOTES SECURED CONSENT FOR EGD, DAUGHTER MADE AWARE VIA PHONE CALL. CHECKLIST PARTIALLY DONE AND FILED TO CHART.
--- NOTE | 2020-12-09 05:59 | NUR ---
RN NOTES BLOOD GLUCOSE CHECKED, RESULT 112 MG/DL, NO INSULIN COVERAGE.
--- NOTE | 2020-12-09 06:26 | NUR ---
MS RN CLOSING NOTES PATIENT IS AWAKE, A&O X 4, PATIENT IS EGYPTIAN SPEAKING. ON ROOM AIR, TOLERATING WELL, NOT IN ANY FORM OF ACUTE DISTRESS NOTED. DENIES PAIN AT THIS TIME. IV ACCESS ON LEFT AC, PATENT,ONGOING D5 1/2 NS 1L X 75CC/HR, INFUSING WELL. NO S/SX OF INFILTRATION NOTED. ON NPO, SAFETY PRECAUTIONS OBSERVED AND MAINTAINED DURING THE SHIFT: BED ON LOWEST LOCKED POSITION, KEPT CALL LIGHT WITHIN EASY REACH, SIDE RAILS UP X 2. INSTRUCTED TO USE CALL LIGHT WHEN ASSISTANCE IS NEEDED, ALL NEEDS ATTENDED AND MET. WILL ENDORSE TO MORNING NURSE FOR DELMRA.
[2020-12-09 06:44] LABS: BASOPHILS % (AUTO) 0.3 % (0.0-2.0); EOSINOPHILS % (AUTO) 2.5 % (0.0-6.0); HEMATOCRIT 33 % (39-51); HEMOGLOBIN 10.8 g/dL (13.5-17.5); LYMPHOCYTES # (AUTO) 1.7 K/uL (0.8-4.8); LYMPHOCYTES % (AUTO) 26.3 % (20.0-44.0); MEAN CORPUSCULAR HGB CONC 33 g/dl (31.0-36.0); MEAN CORPUSCULAR VOLUME 84 fL (80-96); MONOCYTES # (AUTO) 0.6 K/uL (0.1-1.30); MONOCYTES % (AUTO) 9.6 % (2.0-12.0); NEUTROPHILS % (AUTO) 61.3 % (43.0-81.0); PLATELET COUNT (AUTO) 314 K/uL (150-450); RED BLOOD CELL COUNT(AUTO) 3.89 MIL/uL (4.5-6.0); WHITE BLOOD COUNT (AUTO) 6.6 K/uL (4.3-11.0)
--- NOTE | 2020-12-09 07:05 | NUR ---
MS RN NOTE RECEIVED PATIENT SLEEPING IN BED. EASILY AROUSED. A/O X4. NO SOB NOTED. IN NO APPARENT DISTRESS. PT IS CURRENTLY ON NPO STATUS. DENIES ANY PAIN OR DISCOMFORT. IV ACCESS ON L AC, D5 1/2 NS RUNNING AT 75 CC/HR. HEAD OF BED KEPT ELEVATED TO PREVENT ASPIRATION. SAFETY MEASURES MAINTAINED. BED IN LOWEST POSITION, BRAKES LOCKED. SIDE RAILS UP X2. CALL LIGHT WITHIN REACH. WILL CONTINUE PLAN OF CARE.
[2020-12-09 07:13] LABS: CALCIUM, SERUM 8.4 mg/dL (8.5-10.1); CREATININE 1.4 mg/dL (0.6-1.3); MAGNESIUM 1.6 mg/dL (1.8-2.4); PHOSPHORUS 3.3 mg/dL (2.5-4.9); POTASSIUM 4.2 mmol/L (3.5-5.1)
[2020-12-09 07:53] LABS: THYROID STIMULATING HORMONE 3.321 uIU/mL (0.358-3.74)
[2020-12-09] MEDS: glipiZIDE 10 MG TABLET PO SCH (08:17)
[2020-12-09] MEDS: PANTOPRAZOLE 40 MG VIAL IV SCH (08:17)
[2020-12-09] MEDS: Magnesium 1GM/D5W 100ML PREMIX 100 ML IV SCH ×2 (09:02→10:14)
[2020-12-09] MEDS ORDERED: SUCCINYLCHOLINE CHLORIDE 20 MG/ML VIAL ONE (10:50)
[2020-12-09] MEDS ORDERED: FAMOTIDINE/PF INJ 20 MG/2 ML VIAL IV ONE (10:50)
--- NOTE | 2020-12-09 12:20 | NUR ---
RN NOTE PATIENT JUST GOT BACK FROM SURGERY. VS 116/86 FL 101 RR 18 T 97.6 SA02 98% DR. DUNN ORDERED TO CONTINUE PREVIOUS MEDS AND ADVANCE DIET TOLERATED.
[2020-12-09] MEDS: IV D5/0.45 NACL 1,000 ML IV PRN (16:18)
--- NOTE | 2020-12-09 18:10 | NUR ---
MS RN NOTE PATIENT SITTING IN THE EDGE OF THE BED. A/O X4. AMBULATORY. NO SOB NOTED. NO S/S OF RESPIRATORY DISTRESS. NO REPORTS OF PAIN OR DISCOMFORT AT THIS TIME. IV ACCESS ON L AC, D5 1/2 NS RUNNING AT 75 CC/HR, INTACT AND PATENT. HEAD OF BED KEPT ELEVATED. ALL DUE MEDS GIVEN ORDERED. ALL NEEDS HAVE BEEN MET AND ATTENDED. SAFETY MEASURES MAINTAINED. BED IN LOWEST POSITION, BRAKES LOCKED. SIDE RAILS UP X2. KEPT CALL LIGHT WITHIN REACH. WILL ENDORSE CONTINUITY OF CARE TO ONCOMING SHIFT.
--- NOTE | 2020-12-09 19:34 | NUR ---
MS RN OPENING NOTES RECEIVED PATIENT IN BED, AWAKE, A&O X 4, PATIENT IS [place] SPEAKING. ON ROOM AIR, TOLERATING WELL, NOT IN ANY FORM OF ACUTE DISTRESS NOTED. DENIES PAIN AT THIS TIME. WITH IV ACCESS ON LEFT AC, PATENT,ONGOING D5 1/2 NS 1L X 75CC/HR, INFUSING WELL. NO S/SX OF INFILTRATION NOTED. ON CLEAR LIQUIDS, SAFETY PRECAUTIONS OBSERVED: BED ON LOWEST LOCKED POSITION, KEPT CALL LIGHT WITHIN EASY REACH, SIDE RAILS UP X 2. INSTRUCTED TO USE CALL LIGHT WHEN ASSISTANCE IS NEEDED. PATIENT VERBALIZED UNDERSTANDING. WILL CONTINUE TO MONITOR PATIENT'S STATUS.
[2020-12-09 20:00] VITALS: BP 138/88
[2020-12-09 23:15] LABS: BILIRUBIN,URINE NEGATIVE (NEGATIVE); COLOR,URINE YELLOW (YELLOW); LEUKOCYTE ESTERASE ,URINE NEGATIVE (NEGATIVE); NITRITE, URINE NEGATIVE (NEGATIVE); PH,URINE 5.5 (5.0-8.0); PROTEIN,URINE NEGATIVE (NEGATIVE); UGLUCOSE 100 MG/DL mg/dL (NEGATIVE); UROBILINOGEN,URINE 0.2 EU/dL (0.2)
[2020-12-10] MEDS: BLOOD SUGAR DIAGNOSTIC 1 EACH STRIP IN SCH ×2 (05:33→12:12)
[2020-12-10] MEDS: INSULIN REGULAR, HUMAN 100 UNIT/ML 3 ML VIAL SQ PRN (05:41)
[2020-12-10 06:27] LABS: BASOPHILS % (AUTO) 0.3 % (0.0-2.0); EOSINOPHILS % (AUTO) 0.2 % (0.0-6.0); HEMATOCRIT 33 % (39-51); HEMOGLOBIN 10.9 g/dL (13.5-17.5); LYMPHOCYTES # (AUTO) 0.6 K/uL (0.8-4.8); LYMPHOCYTES % (AUTO) 11.1 % (20.0-44.0); MEAN CORPUSCULAR HGB CONC 33 g/dl (31.0-36.0); MEAN CORPUSCULAR VOLUME 84 fL (80-96); MONOCYTES # (AUTO) 0.5 K/uL (0.1-1.30); MONOCYTES % (AUTO) 8.9 % (2.0-12.0); NEUTROPHILS # (AUTO) 4.3 K/uL (1.8-8.9); NEUTROPHILS % (AUTO) 79.5 % (43.0-81.0); PLATELET COUNT (AUTO) 303 K/uL (150-450); RED BLOOD CELL COUNT(AUTO) 3.91 MIL/uL (4.5-6.0); WHITE BLOOD COUNT (AUTO) 5.4 K/uL (4.3-11.0)
--- NOTE | 2020-12-10 06:28 | NUR ---
MS RN CLOSING NOTES PATIENT IN BED, AWAKE, A&O X 4, PATIENT IS ITALIAN SPEAKING. ON ROOM AIR, TOLERATING WELL, NOT IN ANY FORM OF ACUTE DISTRESS NOTED. DENIES PAIN AT THIS TIME. WITH IV ACCESS ON LEFT AC, PATENT,ONGOING D5 1/2 NS 1L X 75CC/HR, INFUSING WELL. NO S/SX OF INFILTRATION NOTED. ON FULL LIQUIDS, SAFETY PRECAUTIONS OBSERVED AND MAINTAINED DURING THE SHIFT: BED ON LOWEST LOCKED POSITION, KEPT CALL LIGHT WITHIN EASY REACH, SIDE RAILS UP X 2. ALL NEEDS ATTENDED AND MET, WILL ENDORSE TO MORNING NURSE FOR DELMAR.
[2020-12-10 07:09] LABS: ALBUMIN 2.8 g/dL (3.4-5.0); BILIRUBIN,TOTAL 0.4 mg/dL (0.2-1.0); CALCIUM, SERUM 8.4 mg/dL (8.5-10.1); CREATININE 1.5 mg/dL (0.6-1.3); MAGNESIUM 1.8 mg/dL (1.8-2.4); POTASSIUM 4.4 mmol/L (3.5-5.1); TOTAL PROTEIN, SERUM 7.1 g/dL (6.4-8.2)
--- NOTE | 2020-12-10 07:30 | NUR ---
received pt. this am,maltese speaking,vs stable. no complaints offered.
[2020-12-10 08:00] VITALS: BP 109/71
[2020-12-10] MEDS: IV D5/0.45 NACL 1,000 ML IV PRN (08:04)
[2020-12-10] MEDS: glipiZIDE 10 MG TABLET PO SCH (08:31)
[2020-12-10] MEDS: PANTOPRAZOLE 40 MG VIAL IV SCH (08:31)
[2020-12-10] MEDS ORDERED: OMEP20TA20 PO (14:26)
[2020-12-10 16:18] VITALS: BP 128/80
--- NOTE | 2020-12-10 17:30 | NUR ---
Hunter AGEE PROBATE JUDGE IN AND GAVE DC ORDER.HEP LOCK OUT.DTR. HERE.GIVEN DC INSTRUCTIONS.TAKEN TO LOBBY FOR DC ACCOMPANIED BY DTR. AND MOLD WASHER.AWARE TO FOLLOW UP WITH MEDICAL APPLICATION AND GI .
== END 2020-12-10 17:30 | disposition home or self-care (01) | DRG 254 ==
LOC: ER 15:40 → TELE 22:34 → MED 22:52
PROVIDERS: ADMIT Registered Nurse; ATTEND Hospitalist
PROC: 0DB68ZX Excision of Stomach, Via Natural or Artificial Opening Endoscopic, Diagnostic (ICD-10-PCS; principal; 2020-12-09)
DX: T18.128A Food in esophagus causing other injury, initial encounter (principal); N17.0 Acute kidney failure with tubular necrosis; E44.0 Moderate protein-calorie malnutrition; E11.22 Type 2 diabetes mellitus with diabetic chronic kidney disease; E83.42 Hypomagnesemia; R13.10 Dysphagia, unspecified; E78.5 Hyperlipidemia, unspecified; J98.11 Atelectasis; Z79.84 Long term (current) use of oral hypoglycemic drugs; X58.XXXA Exposure to other specified factors, initial encounter; Y93.89 Activity, other specified; Z20.822 Contact with and (suspected) exposure to COVID-19; Y92.008 Other place in unspecified non-institutional (private) residence as the place of occurrence of the external cause; I12.9 Hypertensive chronic kidney disease with stage 1 through stage 4 chronic kidney disease, or unspecified chronic kidney disease; N18.9 Chronic kidney disease, unspecified; E88.09 Other disorders of plasma-protein metabolism, not elsewhere classified; Z68.22 Body mass index [BMI] 22.0-22.9, adult
CPT/HCPCS: 36415; 71045-TC; 80048-TC; 80053-TC; 80061-TC; 82962-TC; 83735-TC; 84100-TC; 84443-TC; 85025-TC; 85730-TC; 87081-TC; 88305-TC; 88313-TC; 88342; 92526; 92611-TC; C9113; C9803; G0378; J0330; J1610; J1815; J2405; J2704; J2765; J3475; J3490; J7030; L0172

== ENCOUNTER 2020-12-21 09:17 | Emergency (ER) | payer MEDICAID ==
[~2020-12-21] VITALS: Ht 170.2 cm; Wt 62.1 kg
[~2020-12-21 09:17] MED LIST changes: +OMEP20TA20 PO
--- NOTE | 2020-12-21 09:27 | NUR ---
TO ER BED 3, C/O THROAT DISCOMFORT SINCE LAST NIGHT, NAUSEA AND VOMITING, SALINE LOCK ESTABLISHED, BLOOD DRAWN.
[2020-12-21] MEDS ORDERED: ONDANSETRON HCL/PF 4 MG/2 ML VIAL ONE (09:48)
[2020-12-21] MEDS: IV NS 0.9% 1,000 ML BAG IV ONE (09:52)
[2020-12-21 09:53] LABS: BASOPHILS % (AUTO) 0.4 % (0.0-2.0); HEMATOCRIT 35 % (39-51); HEMOGLOBIN 11.6 g/dL (13.5-17.5); LYMPHOCYTES # (AUTO) 2.5 K/uL (0.8-4.8); LYMPHOCYTES % (AUTO) 34.2 % (20.0-44.0); MEAN CORPUSCULAR HGB CONC 33 g/dl (31.0-36.0); MEAN CORPUSCULAR VOLUME 84 fL (80-96); MONOCYTES # (AUTO) 0.7 K/uL (0.1-1.30); MONOCYTES % (AUTO) 9.5 % (2.0-12.0); NEUTROPHILS # (AUTO) 3.9 K/uL (1.8-8.9); NEUTROPHILS % (AUTO) 53.9 % (43.0-81.0); PLATELET COUNT (AUTO) 406 K/uL (150-450); RED BLOOD CELL COUNT(AUTO) 4.19 MIL/uL (4.5-6.0); WHITE BLOOD COUNT (AUTO) 7.2 K/uL (4.3-11.0)
[2020-12-21] MEDS: ONDANSETRON HCL/PF 4 MG/2 ML VIAL IVP ONE (09:53)
[2020-12-21 10:00] LABS: CALCIUM, SERUM 8.8 mg/dL (8.5-10.1); CREATININE 1.3 mg/dL (0.6-1.3); POTASSIUM 4.4 mmol/L (3.5-5.1)
[2020-12-21 10:06] LABS: ALBUMIN 3.2 g/dL (3.4-5.0); BILIRUBIN,DIRECT 0.1 mg/dL (0.0-0.2); BILIRUBIN,TOTAL 0.3 mg/dL (0.2-1.0); TOTAL PROTEIN, SERUM 7.8 g/dL (6.4-8.2)
[2020-12-21 10:30] VITALS: BP 145/99
[2020-12-21] MEDS ORDERED: MAG HYDROX/AL HYDROX/SIMETH 30 ML UDC ONE (10:40)
[2020-12-21] MEDS: MAG HYDROX/AL HYDROX/SIMETH 30 ML UDC PO ONE (10:50)
== END 2020-12-21 11:03 | disposition home or self-care (01) ==
LOC: ER 09:20
DX: T18.128A Food in esophagus causing other injury, initial encounter (principal); I10 Essential (primary) hypertension; E11.9 Type 2 diabetes mellitus without complications; Z98.890 Other specified postprocedural states; Z79.899 Other long term (current) drug therapy; X58.XXXA Exposure to other specified factors, initial encounter; Y93.89 Activity, other specified; Y92.89 Other specified places as the place of occurrence of the external cause; Y99.8 Other external cause status
CPT/HCPCS: 36415; 80048; 80076; 83690; 85025; 96361; 96374; 99283; J2405; J7030